=== PATIENT | female | born 1960 | race African-American/Black ===

== ENCOUNTER → 2020-11-29 | Outpatient (CLI) | payer MEDICARE, MEDICAID ==
--- NOTE | 2020-11-29 10:45 | RAD ---
Study: XR KNEE 3 [id number] Indication: Right knee pain. Comparison: None. Findings: Moderate/borderline severe medial femorotibial compartment joint space narrowing. Medial larger than lateral joint line osteophytes. Small osteophytes at the patellofemoral compartment. No acute fractur e. Small appearing knee joint effusion. Impression: 1. No acute osseous abnormality. 2. 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 3. Small appearing knee joint effusion likely degenerative. Electronically signed by: CODY FORD MD (11/29/2020 10:43 AM) [facility]
== END ==
LOC: RAD 10:00
PROVIDERS: ATTEND Family Medicine
DX: M17.11 Unilateral primary osteoarthritis, right knee (principal); M25.461 Effusion, right knee; M25.761 Osteophyte, right knee
CPT/HCPCS: 73562